=== PATIENT | female | born 1980 | race Two or more races ===

== ENCOUNTER 2018-07-01 22:41 | Emergency (ER) | payer OTHER ==
--- NOTE | 2018-07-01 23:00 | C.PDOC ---
History Of Present Illness 37 yo female, presnts via ems for pyschiatric eval. pt was [facility] ,stating she is depressed. reportly had her child taken from [facility]. at bedside, pt soft spoken, denies medical complaints. <Richardson Hagen - Last Filed: 07/01/18 23:08> <Richardson Hagen - Last Filed: 07/01/18 23:08> <July Burnette - Last Filed: 07/02/18 05:55> <Portia Avila - Last Filed: 07/02/18 08:14> Time Seen by Provider: 07/01/18 22:57 Chief Complaint (Nursing): Psychiatric Evaluation Past Medical History Reviewed: Historical Data, Nursing Documentation, Vital Signs <Richardson Hagen - Last Filed: 07/01/18 23:08> Vital Signs: Last Vital Signs Temp 97.8 F 07/01/18 22:54 Pulse 74 07/01/18 22:54 Resp 18 07/01/18 22:54 BP 129/91 H 07/01/18 22:54 Pulse Ox 98 07/01/18 22:54 Family History: States: No Known Family Hx <July Burnette - Last Filed: 07/02/18 05:55> Vital Signs: Last Vital Signs Temp 97.7 F 07/02/18 05:55 Pulse 77 07/02/18 05:55 Resp 16 07/02/18 05:55 BP 101/56 L 07/02/18 05:55 Pulse Ox 98 07/02/18 05:56 <Portia Avila - Last Filed: 07/02/18 08:14> Review Of Systems Psych: Positive for: Depression <Richardson Hagen - Last Filed: 07/01/18 23:08> Physical Exam - Physical Exam Appears: Well, No Acute Distress, Other (soft spoken) Skin: Normal Color, Warm, Dry Eye(s): bilateral: Normal Inspection, PERRL, EOMI Nose: Normal Throat: Normal Neck: Normal Cardiovascular: Rhythm Regular Respiratory: Normal Breath Sounds Gastrointestinal/Abdominal: Normal Exam Back: Normal Inspection Extremity: Normal ROM Neurological/Psych: Oriented x3, Normal Speech, Normal Cognition, Normal Cranial Nerves, No Cerebellar Signs <Richardson Hagen - Last Filed: 07/01/18 23:08> ED Course And Treatment - Laboratory Results Result Diagrams: 07/01/18 23:12 07/01/18 23:12 Lab Results: Total Bilirubin 1.0 mg/dL (0.2-1.3) 07/01/18 23:12 AST 27 U/L (14-36) 07/01/18 23:12 ALT 24 U/L (9-52) 07/01/18 23:12 Alkaline Phosphatase 33 U/L (38-126) L 07/01/18 23:12 Total Protein 8.0 g/dL (6.3-8.3) 07/01/18 23:12 Albumin 4.8 g/dL (3.5-5.0) 07/01/18 23:12 Globulin 3.2 gm/dL (2.2-3.9) 07/01/18 23:12 Albumin/Globulin Ratio 1.5 (1.0-2.1) 07/01/18 23:12 Urine Color [place]ap[place] (YELLOW) 07/01/18 23:53 Urine Clarity Hazy (Clear) 07/01/18 23:53 Urine pH 5.0 (5.0-8.0) 07/01/18 23:53 Ur Specific [place] 1.030 (1.003-1.030) 07/01/18 23:53 Urine Protein 2+ mg/dL (NEGATIVE) H 07/01/18 23:53 Urine Glucose (UA) Normal mg/dL (Normal) 07/01/18 23:53 Urine Ketones Trace mg/dL (NEGATIVE) 07/01/18 23:53 Urine Blood Negative (NEGATIVE) 07/01/18 23:53 Urine Nitrate Negative (NEGATIVE) 07/01/18 23:53 Urine Bilirubin 1+ (NEGATIVE) H 07/01/18 23:53 Urine Urobilinogen 2.0 mg/dL (0.2-1.0) H 07/01/18 23:53 Ur Leukocyte Esterase 2+ Roman/uL (Negative) H 07/01/18 23:53 Urine WBC (Auto) 13 /hpf (0-5) H 07/01/18 23:53 Urine RBC (Auto) 15 /hpf (0-3) H 07/01/18 23:53 Ur Squamous Epith Cells 25 /hpf (0-5) H 07/01/18 23:53 Urine Bacteria Rare (<OCC) 07/01/18 23:53 Granular Casts (Auto) 1 /lpf (0-1) 07/01/18 23:53 Urine Sperm (Auto) Rare /hpf (NONE) H 07/01/18 23:53 ECG: Interpreted By Me, Viewed By Me ECG Rhythm: Sinus Rhythm (76), Nonspecific Changes O2 Sat by Pulse Oximetry: 98 Pulse Ox Interpretation: Normal - Radiology CXR: Interpreted by Me, Viewed By Me CXR Interpretation: No: Infiltrates, Fracture, Pnemothorax Progress Note: 1:29AM As per dr simon - 1 mg po ativan given. He wants re-eval in 1-2 hours <July Burnette - Last Filed: 07/02/18 05:55> - Laboratory Results Result Diagrams: 07/01/18 23:12 07/01/18 23:12 Lab Results: Total Bilirubin 1.0 mg/dL (0.2-1.3) 07/01/18 23:12 AST 27 U/L (14-36) 07/01/18 23:12 ALT 24 U/L (9-52) 07/01/18 23:12 Alkaline Phosphatase 33 U/L (38-126) L 07/01/18 23:12 Total Protein 8.0 g/dL (6.3-8.3) 07/01/18 23:12 Albumin 4.8 g/dL (3.5-5.0) 07/01/18 23:12 Globulin 3.2 gm/dL (2.2-3.9) 07/01/18 23:12 Albumin/Globulin Ratio 1.5 (1.0-2.1) 07/01/18 23:12 Urine Color [place] (YELLOW) 07/01/18 23:53 Urine Clarity Hazy (Clear) 07/01/18 23:53 Urine pH 5.0 (5.0-8.0) 07/01/18 23:53 Ur Specific [place] 1.030 (1.003-1.030) 07/01/18 23:53 Urine Protein 2+ mg/dL (NEGATIVE) H 07/01/18 23:53 Urine Glucose (UA) Normal mg/dL (Normal) 07/01/18 23:53 Urine Ketones Trace mg/dL (NEGATIVE) 07/01/18 23:53 Urine Blood Negative (NEGATIVE) 07/01/18 23:53 Urine Nitrate Negative (NEGATIVE) 07/01/18 23:53 Urine Bilirubin 1+ (NEGATIVE) H 07/01/18 23:53 Urine Urobilinogen 2.0 mg/dL (0.2-1.0) H 07/01/18 23:53 Ur Leukocyte Esterase 2+ Roman/uL (Negative) H 07/01/18 23:53 Urine WBC (Auto) 13 /hpf (0-5) H 07/01/18 23:53 Urine RBC (Auto) 15 /hpf (0-3) H 07/01/18 23:53 Ur Squamous Epith Cells 25 /hpf (0-5) H 07/01/18 23:53 Urine Bacteria Rare (<OCC) 07/01/18 23:53 Granular Casts (Auto) 1 /lpf (0-1) 07/01/18 23:53 Urine Sperm (Auto) Rare /hpf (NONE) H 07/01/18 23:53 Urine HCG, Qual Negative (NEGATIVE) 07/02/18 03:02 Urine HCG, Qual Negative (NEGATIVE) 07/02/18 03:02 <Portia Avila - Last Filed: 07/02/18 08:14> Progress - Re-Evaluation Re-evaluation Note: 07/02/18 08:14 PENDING CRISIS REEVAL. NO ACUTE BEHAVIORAL DISTURBANCE. <Portia Avila - Last Filed: 07/02/18 08:14> Disposition <Richardson Hagen - Last Filed: 07/01/18 23:08> Counseled Patient/Family Regarding: Studies Performed, Diagnosis - Disposition Disposition Time: 01:00 <July Burnette - Last Filed: 07/02/18 05:55> <Portia Avila - Last Filed: 07/02/18 08:14> - Disposition Condition: FAIR Forms: [facility] ([place]ian) - Clinical Impression Clinical Impression: PCP (phencyclidine) abuse Physician Patient Turnover Patient Signed Over To: Portia Avila Handoff Comments: pending crisis re-eval and disposition <July Burnette - Last Filed: 07/02/18 05:55>
[2018-07-01 23:15] LABS: BASO # 0.1 K/uL (0.0-0.2); BASO % 1.1 % (0.0-2.0); EOS % 0.5 % (0.0-4.0); HEMOGLOBIN 13.9 g/dL (11.0-16.0); LYMPH # 3.6 K/uL (1.0-4.3); LYMPH % 54.6 % (20.0-40.0); MEAN CELL VOLUME 90.9 fL (81.0-99.0); MEAN CORPUSCULAR HEMOGLOBIN 31.8 pg (27.0-31.0); MEAN PLATELET VOLUME 8.5 fL (7.2-11.7); MONO # 0.6 K/uL (0.0-0.8); MONO % 8.3 % (0.0-10.0); NEUT # 2.4 K/uL (1.8-7.0); NEUT % 35.5 % (50.0-75.0); RBC 4.37 Mil/uL (3.80-5.20); RED CELL DISTRIBUTION WIDTH 13.9 % (11.5-14.5); WHITE BLOOD COUNT 6.7 K/uL (4.8-10.8)
[2018-07-01 23:26] LABS: ACETAMINOPHEN < 10.0 ug/mL (10.0-30.0); SALICYLATE < 1.0 mg/dL 1
[2018-07-01 23:28] LABS: BLOOD UREA NITROGEN 6 mg/dL (7-17); CALCIUM 9.4 mg/dl (8.6-10.4); GFR NON-AFRICAN AMERICAN > 60
[2018-07-01 23:29] LABS: ALB/GLOB RATIO 1.5 (1.0-2.1); ALBUMIN 4.8 g/dL (3.5-5.0); ALT/SGPT 24 U/L (9-52); AST/SGOT 27 U/L (14-36)
[2018-07-02 00:09] LABS: GRANULAR CAST 1 /lpf (0-1); SPERM URINE RARE /hpf; SQUAMOUS EPITHIAL 25 /hpf (0-5); URINE BACTERIA RARE (<OCC); URINE BILIRUBIN 1+ (NEGATIVE); URINE BLOOD NEGATIVE (NEGATIVE); URINE CLARITY Hazy (Clear); URINE COLOR Amber (YELLOW); URINE GLUCOSE (UA) NORMAL (Normal); URINE LEUKOCYTE ESTERASE 2+ Leu/uL (Negative); URINE PROTEIN 2+ mg/dL (NEGATIVE)
[2018-07-02 00:14] LABS: BARBITURATES, UR NEGATIVE (NEGATIVE); BENZODIAZEPINES, UR NEGATIVE (NEGATIVE); OPIATES, UR NEGATIVE (NEGATIVE)
[2018-07-02 00:20] LABS: PHENCYCLIDINE, UR POSITIVE (NEGATIVE)
--- NOTE | 2018-07-02 09:08 | RAD ---
Date of service: 07/02/2018 HISTORY: pysch COMPARISON: No prior. FINDINGS: LUNGS: The lungs are well inflated and clear. PLEURA: No pleural effusions or pneumothorax. CARDIOVASCULAR: The heart is normal in size. No aortic atherosclerotic calcifications present. OSSEOUS STRUCTURES: Within normal limits for the patient's age. VISUALIZED UPPER ABDOMEN: Normal. OTHER FINDINGS: None. IMPRESSION: No active pulmonary disease.
[2018-07-02 09:51] VITALS: RESP 18; O2SAT 100
[2018-07-02 13:35] VITALS: BP 132/76; PULSE 82; TEMP 98.1
--- NOTE | 2018-07-02 15:12 | PCM.PSYCH ---
Initial Psychiatric Evaluation - Initial Psychiatric Evaluation Type of Admission: Voluntary Legal Status: Capacity History of Present Illness and Precipitating Events: Pt is cleared for d/c. Full note to follow Past Psychiatric History - Past Psychiatric History Pertinent Medical Hx (Current Medical&Sleep Prob, Allergies): Allergies Allergy/AdvReac Type Severity Reaction Status Date / Time No Known Allergies Allergy Unverified 07/02/18 01:31 traZODone 07/01/18
--- NOTE | 2018-07-04 14:52 | CARD ---
APPROVED REPORT Date of service: 07/02/2018 EKG Measurement Heart [id number] <Conclusion> Normal sinus rhythm Normal ECG
== END 2018-07-02 13:35 | disposition home or self-care (01) ==
LOC: C.ER 22:41
DX: F16.10 Hallucinogen abuse, uncomplicated (principal)